=== PATIENT | male | born 1960 | race Two or more races ===

== ENCOUNTER 2017-02-20 10:27 | Emergency (ER) | payer MEDICAID ==
[~2017-02-20] VITALS: Ht 160 cm; Wt 68.0 kg
[2017-02-20 10:35] VITALS: BP 108/66
[2017-02-20 11:50] LABS: ANION GAP 8 mmol/L (5-15); CALCIUM 8.1 MG/DL (8.5-10.1); CARBON DIOXIDE 27 MMOL/L (21-32); CHLORIDE 110 MMOL/L (98-107); CREATININE 0.7 MG/DL (0.55-1.30); GLOMERULAR FILTRATION RATE > 60 mL/min (>60); POTASSIUM 4.2 MMOL/L (3.5-5.1); SODIUM 145 MMOL/L (136-145)
[2017-02-20 11:51] LABS: BASOPHILS % (AUTO) 1.1 % (0.0-2.0); EOSINOPHILS % (AUTO) 7.9 % (0.0-3.0); LYMPHOCYTES % (AUTO) 36.6 % (20.0-45.0); MEAN CORPUSCULAR HEMOGLOBIN 29.2 PG (27.0-31.0); MEAN CORPUSCULAR HGB CONC 30.9 G/DL (32.0-36.0); MEAN CORPUSCULAR VOLUME 94 FL (80-99); MONOCYTES % (AUTO) 6.5 % (1.0-10.0); PLATELET COUNT 127 K/UL (150-450); RED BLOOD COUNT 3.78 M/UL (4.70-6.10); RED CELL DISTRIBUTION WIDTH 15.1 % (11.6-14.8); WHITE BLOOD COUNT 8.7 K/UL (4.8-10.8)
[2017-02-20 11:57] LABS: ALANINE AMINOTRANSFERASE 46 U/L (12-78); ALBUMIN/GLOBULIN RATIO 0.8 (1.0-2.7); ALCOHOL 444 mg/dL; ASPARTATE AMINO TRANSFERASE 88 U/L (15-37); TOTAL PROTEIN 8.3 G/DL (6.4-8.2)
[2017-02-20 11:59] LABS: ACETAMINOPHEN < 2 MCG/ML (10-30)
[2017-02-20 13:24] VITALS: BP 117/70
--- NOTE | 2017-02-20 13:51 | Emergency Room Report ---
History of Present Illness General Chief Complaint: Alcohol Intoxication Source: EMS Present Illness HPI This patient is brought in from the street by EMS. He is homeless. He was passed out on the sidewalk and EMS was called by a bystander. He had a shopping cart full of hard liquor. The patient is completely obtunded and unable to give a history. There is no obvious evidence of trauma. EMS report that he appeared to pass out from drinking. Allergies: Coded Allergies: UNABLE TO ASSESS (Unverified , 02/20/17) Patient History Past Medical History: unable to obtain Past Surgical History: unable to obtain Pertinent Family History: unable to obtain Social History: Reports: alcohol use Nursing Documentation-[facility] Past Medical History: No History, Except For Review of Systems All Other Systems: limited Physical Exam Vital Signs Date Time Temp Pulse Resp B/P (MAP) Pulse Ox O2 Delivery O2 Flow Rate FiO2 02/20/17 10:27 85 20 108/66 99 Room Air 02/20/17 10:35 97.2 Sp02 EP Interpretation: reviewed, normal General Appearance: no apparent distress, non-toxic, Stupor Head: normocephalic, atraumatic Eyes: bilateral eye normal inspection, bilateral eye PERRL ENT: no angioedema Neck: full range of motion, supple/symm/no masses Respiratory: chest non-tender, lungs clear, normal breath sounds, no respiratory distress, no retraction, no accessory muscle use Cardiovascular #1: regular rate, rhythm, no edema Gastrointestinal: normal bowel sounds, non tender, soft, non-distended, no guarding, no rebound Rectal: deferred Musculoskeletal: normal range of motion Neurologic: sensory intact, other - obtunded/stupor Skin: normal color, no rash, warm/dry, well hydrated Medical Decision Making Diagnostic Impression: Primary Impression: Acute alcoholic intoxication ER Course This patient presents with acute alcoholic intoxication. The patient's laboratory workup was noncontributory other than an elevated EtOH and transaminitis. There is no evidence of trauma or injury on physical examination of this patient. The patient was allowed to sober up in the emergency department and was able to ambulate and articulate desire to go home. The patient was clinically sober at the time of discharge. No acute emergency medical condition is identified. The patient was educated on the dangers of alcohol intoxication and abuse. The patient was given a list of the local rehabilitation clinics. Laboratory Tests Test 02/20/17 11:11 White Blood Count 8.7 K/UL (4.8-10.8) Red Blood Count 3.78 M/UL (4.70-6.10) L Hemoglobin 11.0 G/DL (14.2-18.0) L Hematocrit 35.7 % (42.0-52.0) L Mean Corpuscular Volume 94 FL (80-99) Mean Corpuscular Hemoglobin 29.2 PG (27.0-31.0) Mean Corpuscular Hemoglobin Concent 30.9 G/DL (32.0-36.0) L Red Cell Distribution Width 15.1 % (11.6-14.8) H Platelet Count 127 K/UL (150-450) L Mean Platelet Volume 7.0 FL (6.5-10.1) Neutrophils (%) (Auto) 48.0 % (45.0-75.0) Lymphocytes (%) (Auto) 36.6 % (20.0-45.0) Monocytes (%) (Auto) 6.5 % (1.0-10.0) Eosinophils (%) (Auto) 7.9 % (0.0-3.0) H Basophils (%) (Auto) 1.1 % (0.0-2.0) Sodium Level 145 MMOL/L (136-145) Potassium Level 4.2 MMOL/L (3.5-5.1) Chloride Level 110 MMOL/L (98-107) H Carbon Dioxide Level 27 MMOL/L (21-32) Anion Gap 8 mmol/L (5-15) Blood Urea Nitrogen 14 mg/dL (7-18) Creatinine 0.7 MG/DL (0.55-1.30) Estimate Glomerular Filtration Rate > 60 mL/min (>60) Glucose Level 113 MG/DL (74-106) H Calcium Level 8.1 MG/DL (8.5-10.1) L Total Bilirubin 0.7 MG/DL (0.2-1.0) Aspartate Amino Transferase (AST) 88 U/L (15-37) H Alanine Aminotransferase (ALT) 46 U/L (12-78) Alkaline Phosphatase 260 U/L (46-116) H Total Protein 8.3 G/DL (6.4-8.2) H Albumin 3.6 G/DL (3.4-5.0) Globulin 4.7 g/dL Albumin/Globulin Ratio 0.8 (1.0-2.7) L Salicylates Level < 0.2 ug/mL (2.8-20) L Urine Opiates Screen Negative (NEGATIVE) Acetaminophen Level < 2 MCG/ML (10-30) L Urine Barbiturates Screen Negative (NEGATIVE) Phencyclidine (PCP) Screen Negative (NEGATIVE) Urine Amphetamines Screen Negative (NEGATIVE) Urine Benzodiazepines Screen Negative (NEGATIVE) Urine Cocaine Screen Negative (NEGATIVE) Urine Marijuana (THC) Screen Negative (NEGATIVE) Serum Alcohol 444 mg/dL EKG Diagnostic Results Rate: normal Rhythm: NSR ST Segments: no acute changes Rhythm Strip Diag. Results EP Interpretation: yes Rate: 70's Rhythm: NSR, no PVC's, no ectopy Last Vital Signs Date Time Temp Pulse Resp B/P (MAP) Pulse Ox O2 Delivery O2 Flow Rate FiO2 02/20/17 13:24 97.2 93 16 117/70 98 Room Air Disposition: HOME, SELF-CARE Condition: Improved Referrals: NOT CHOSEN [facility]/MD,REFERRING (PCP) Patient Instructions: Alcohol Abuse and Nutrition, Alcohol Use Disorder HUSAM ELENA D.O. Feb 20, 2017 13:51
[2017-02-20 15:04] VITALS: BP 116/73
[2017-02-20 19:16] VITALS: BP 116/73
[2017-02-20 21:20] VITALS: BP 116/73
== END 2017-02-20 21:21 | disposition home or self-care (01) ==
LOC: EDBD 10:27 → EMR 10:45 → EDBD 10:45 → EMR 21:21
DX: F10.129 Alcohol abuse with intoxication, unspecified (principal); Z59.0 Homelessness
CPT/HCPCS: 36415; 80053; 80307; 80329; 82962; 85025; 96360; 99284

== ENCOUNTER 2017-06-16 16:50 | Emergency (ER) | payer MEDICAID ==
[~2017-06-16] VITALS: Ht 149.9 cm; Wt 63.5 kg
[2017-06-16 18:38] LABS: HEMATOCRIT 33.9 % (42.0-52.0); MEAN CORPUSCULAR VOLUME 86 FL (80-99); PLATELET COUNT 88 K/UL (150-450); RED BLOOD COUNT 3.96 M/UL (4.70-6.10); RED CELL DISTRIBUTION WIDTH 16.1 % (11.6-14.8); WHITE BLOOD COUNT 6.1 K/UL (4.8-10.8)
[2017-06-16 18:40] LABS: ANION GAP 12 mmol/L (5-15); BLOOD UREA NITROGEN 15 mg/dL (7-18); CALCIUM 8.5 MG/DL (8.5-10.1); CARBON DIOXIDE 24 MMOL/L (21-32); CHLORIDE 104 MMOL/L (98-107); CREATININE 0.8 MG/DL (0.55-1.30); POTASSIUM 3.9 MMOL/L (3.5-5.1); SODIUM 140 MMOL/L (136-145)
[2017-06-16 18:50] LABS: ALANINE AMINOTRANSFERASE 68 U/L (12-78); ALBUMIN 3.5 G/DL (3.4-5.0); ALBUMIN/GLOBULIN RATIO 0.9 (1.0-2.7); ALKALINE PHOSPHATASE 211 U/L (46-116); ASPARTATE AMINO TRANSFERASE 133 U/L (15-37); BILIRUBIN,TOTAL 1.3 MG/DL (0.2-1.0)
[2017-06-16 18:51] LABS: BILIRUBIN,DIRECT 0.4 MG/DL (0.0-0.3)
--- NOTE | 2017-06-16 18:51 | Emergency Room Report ---
History of Present Illness General Chief Complaint: Alcohol Intoxication Source: EMS Present Illness HPI 56-year-old male presents to the emergency department brought by EMS for acute alcohol intoxication. Patient has slurred speech however he is alert and able to answer questions. Patient states that he was drinking a lot today and he reports drinking "Eamon "patient states that he fell he does not give further detail about whether or not he hit his head however it does appear that he has epistaxis. Patient states he has no medical problems. "He just drinks a lot." He denies abdominal pain, tenderness, constipation or diarrhea. Patient reports when he drinks a lot he does get nausea and sometimes will vomit however he denies vomiting today. Pt. Denies pain at this time. States he is not prescribed medications and does not take any. Allergies: Coded Allergies: No Known Allergies (Unverified , 06/16/17) UNABLE TO ASSESS (Unverified , 02/20/17) Patient History Limited by: language barrier - hyperbaric tech translated: Monisha Past Medical History: see triage record Past Surgical History: none Pertinent Family History: none Reviewed Nursing Documentation: PMH: Agreed; PSxH: Agreed Nursing Documentation-PMH Past Medical History: Deferred Review of Systems All Other Systems: negative except mentioned in HPI Physical Exam Vital Signs Date Time Temp Pulse Resp B/P (MAP) Pulse Ox O2 Delivery O2 Flow Rate FiO2 06/16/17 16:43 98.4 93 16 125/76 99 Room Air 98.4 Sp02 EP Interpretation: reviewed, normal General Appearance: no apparent distress, alert, GCS 15, non-toxic, other - somewhat Disheveled Head: normocephalic, other - dry blood noted on the bridge of the nose with some bright red blood just under the right nostril. Eyes: bilateral eye normal inspection, bilateral eye PERRL ENT: hearing grossly normal, normal voice, TMs + canals normal, moist mucus membranes, other - no evidence of acute bleeding, no septal hematoma Neck: full range of motion, no bony tend Respiratory: chest non-tender, lungs clear, normal breath sounds, no rhonchi, no wheezing, speaking full sentences Cardiovascular #1: regular rate, rhythm, no edema Gastrointestinal: normal bowel sounds, non tender, soft Musculoskeletal: back normal, gait/station normal, normal range of motion, non- tender Neurologic: alert, oriented x3, responsive, motor strength/tone normal, sensory intact, speech normal, grossly normal Psychiatric: judgement/insight normal Skin: normal color, no rash, warm/dry, well hydrated Medical Decision Making PA Attestation Dr. Hernandez is my supervising Physician whom patient management has been discussed with. Diagnostic Impression: Primary Impression: Acute alcoholic intoxication Qualified Codes: F10.929 - Alcohol use, unspecified with intoxication, unspecified ER Course 56-year-old male presents to the emergency department brought by EMS for acute alcohol intoxication. Patient has slurred speech however he is alert and able to answer questions. Patient states that he was drinking a lot today and he reports drinking "Eamon "patient states that he fell he does not give further detail about whether or not he hit his head however it does appear that he has epistaxis. Patient states he has no medical problems. "He just drinks a lot." He denies abdominal pain, tenderness, constipation or diarrhea. Patient reports when he drinks a lot he does get nausea and sometimes will vomit however he denies vomiting today. Pt. Denies pain at this time. States he is not prescribed medications and does not take any. Ddx considered but are not limited to ETOH, Trauma, Syncope, dementia, OD Vital signs: are WNL, pt. is afebrile H&PE are most consistent with ETOH abuse. ORDERS: -Serum ETOH: 309 -CMP: elevated AST -CBC: anemia, no evidence of acute hemorrhage. -AccuCheck:109 -CT Head & Facial Bones Non-Contrast: "No evidence of acute fracture, hemorrhage , or intracranial process." Per official radiology report- Please see report for specific details. ED INTERVENTIONS: Observance while he detoxifies. Pt. was allowed to sleep/ rest. PT. became awake and alert x 3 DISPOSITION: pt. requires further observation until clinically sober. Pt. is signed out to on-coming MD. Labs Test 06/16/17 17:20 White Blood Count 6.1 K/UL (4.8-10.8) Red Blood Count 3.96 M/UL (4.70-6.10) Hemoglobin 11.0 G/DL (14.2-18.0) Hematocrit 33.9 % (42.0-52.0) Mean Corpuscular Volume 86 FL (80-99) Mean Corpuscular Hemoglobin 27.7 PG (27.0-31.0) Mean Corpuscular Hemoglobin Concent 32.4 G/DL (32.0-36.0) Red Cell Distribution Width 16.1 % (11.6-14.8) Platelet Count 88 K/UL (150-450) Mean Platelet Volume 6.7 FL (6.5-10.1) Neutrophils (%) (Auto) % (45.0-75.0) Lymphocytes (%) (Auto) % (20.0-45.0) Monocytes (%) (Auto) % (1.0-10.0) Eosinophils (%) (Auto) % (0.0-3.0) Basophils (%) (Auto) % (0.0-2.0) Differential Total Cells Counted 100 Neutrophils % (Manual) 53 % (45-75) Lymphocytes % (Manual) 32 % (20-45) Monocytes % (Manual) 5 % (1-10) Eosinophils % (Manual) 9 % (0-3) Basophils % (Manual) 1 % (0-2) Band Neutrophils 0 % (0-8) Platelet Estimate Decreased Platelet Morphology Normal Hypochromasia 1+ Anisocytosis 1+ Sodium Level 140 MMOL/L (136-145) Potassium Level 3.9 MMOL/L (3.5-5.1) Chloride Level 104 MMOL/L (98-107) Carbon Dioxide Level 24 MMOL/L (21-32) Anion Gap 12 mmol/L (5-15) Blood Urea Nitrogen 15 mg/dL (7-18) Creatinine 0.8 MG/DL (0.55-1.30) Estimat Glomerular Filtration Rate > 60 mL/min (>60) Glucose Level 111 MG/DL (74-106) Calcium Level 8.5 MG/DL (8.5-10.1) Total Bilirubin 1.3 MG/DL (0.2-1.0) Direct Bilirubin 0.4 MG/DL (0.0-0.3) Aspartate Amino Transf (AST/SGOT) 133 U/L (15-37) Alanine Aminotransferase (ALT/SGPT) 68 U/L (12-78) Alkaline Phosphatase 211 U/L (46-116) Total Protein 7.5 G/DL (6.4-8.2) Albumin 3.5 G/DL (3.4-5.0) Globulin 4.0 g/dL Albumin/Globulin Ratio 0.9 (1.0-2.7) Serum Alcohol 309 mg/dL CT/MRI/US Diagnostic Results CT/MRI/US Diagnostic Results #1: Imaging Test Ordered: CT head no contrast Impression " No evidence of acute fracture, hemorrhage, or intracranial process ." Per official radiology report- Please see report for specific details. CT/MRI/US Diagnostic Results #2: Imaging Test Ordered: CT Facial Bones No Contrast Impression " Minimal sinus mucosal thickening no acute fractures." Per official radiology report- Please see report for specific details. Last Vital Signs Date Time Temp Pulse Resp B/P (MAP) Pulse Ox O2 Delivery O2 Flow Rate FiO2 06/16/17 16:43 98.4 93 16 125/76 99 Room Air 98.4 Signed Out To: Dr. Almaraz Referrals: NOT CHOSEN [facility]/,REFERRING (PCP) Tia Ruiz Jun 16, 2017 18:51
[2017-06-16 19:00] VITALS: BP 123/76
[2017-06-16 20:27] VITALS: BP 123/83
[2017-06-16 22:30] VITALS: BP 127/66
[2017-06-16 22:44] VITALS: BP 123/83
--- NOTE | 2017-06-17 08:33 | Diagnostic Imaging Report ---
Indications: Reason For Exam: PAIN Technique: Spiral images obtained through the facial bones. No IV contrast utilized. Multiplanar reconstructions were generated.Total dose length product 1785.76 mGycm. CTDIvol(s) 70.38,28.19 mGy. Dose reduction achieved using automated exposure control Comparison: none Findings: No evidence of acute fracture. There is chronic appearing mucoperiosteal thickening of the bilateral maxillary sinuses. There is minimal ethmoid sinus mucosal disease. No significant soft tissue contusion demonstrated. The orbits and optic globes are unremarkable. Impression: No acute process Bilateral sinus disease as described This agrees with the preliminary interpretation provided overnight by [facility] teleradiology service. The CT scanner at [facility] is accredited by the [employer] and the scans are performed using protocols designed to limit radiation exposure to as low as reasonably achievable to attain images of sufficient resolution adequate for diagnostic evaluation.
--- NOTE | 2017-06-17 08:34 | Diagnostic Imaging Report ---
Indication: Pain Technique: Continuous helical CT scanning of the head was performed without intravenous contrast material. Axial and coronal 5 mm sections were generated. Radiation dose was minimized using automated exposure control Dose: Total Dose Length Product - DLP 1785.[address] Dose Index - CTDIvol(s) 70.38,28.19 mGy. Comparison: none Findings: The ventricular system is normal in size and configuration. There is no shift of midline structures. No abnormal extra-axial fluid collections are noted. There is no evidence of intracerebral bleeding. No other abnormal high or low density areas are noted within the brain. Calvarium is intact. There is minimal ethmoid and maxillary sinus disease. The mastoids are clear Impression: Normal CT scan of the head without contrast material. Incidental finding of minimal sinus disease This agrees with the preliminary interpretation provided overnight by [facility] service. The CT scanner at [facility] is accredited by the [employer] and the scans are performed using protocols designed to limit radiation exposure to as low as reasonably achievable to attain images of sufficient resolution adequate for diagnostic evaluation.
== END 2017-06-16 22:47 | disposition home or self-care (01) ==
LOC: EDBD 16:50 → EMR 17:20
DX: F10.929 Alcohol use, unspecified with intoxication, unspecified (principal); D64.9 Anemia, unspecified; J32.2 Chronic ethmoidal sinusitis
CPT/HCPCS: 36415; 70450; 70486; 80053; 80329; 82248; 85007; 85025; 99284